=== PATIENT | male | born 1985 | race African-American/Black ===

== ENCOUNTER 2016-09-20 06:03 | Emergency (ER) | payer MEDICAID ==
[~2016-09-20] VITALS: Ht 175.3 cm; Wt 66.0 kg
[2016-09-20 06:13] VITALS: BP 121/87
== END 2016-09-20 07:30 | disposition left against medical advice (07) ==
LOC: ER 06:07
DX: R10.9 Unspecified abdominal pain (principal); Z53.21 Procedure and treatment not carried out due to patient leaving prior to being seen by health care provider

== ENCOUNTER 2018-06-28 08:24 | Emergency (ER) | payer MEDICAID ==
[~2018-06-28] VITALS: Ht 175.3 cm; Wt 68.0 kg
[2018-06-28] MEDS ORDERED: HYDROCODONE/ACETAMINOPHEN 5/325MG TABLET PO ONE (10:15)
[2018-06-28 11:38] VITALS: BP 130/84
== END 2018-06-28 11:40 | disposition home or self-care (01) ==
LOC: ER 08:37
DX: M25.512 Pain in left shoulder (principal); F17.200 Nicotine dependence, unspecified, uncomplicated
CPT/HCPCS: 73030; 99283

== ENCOUNTER 2021-02-01 10:21 | Emergency (ER) | payer MEDICAID ==
[~2021-02-01] VITALS: Ht 177.8 cm; Wt 73.0 kg
[2021-02-01 11:03] VITALS: BP 124/78
[2021-02-01] MEDS ORDERED: IBUPROFEN 600MG TABLET PO ONE (11:30)
[2021-02-01] MEDS ORDERED: IBUP-2029 MT (11:51)
== END 2021-02-01 12:09 | disposition home or self-care (01) ==
LOC: ER 10:21
DX: S63.502A Unspecified sprain of left wrist, initial encounter (principal); W50.2XXA Accidental twist by another person, initial encounter; Y93.89 Activity, other specified; Y92.89 Other specified places as the place of occurrence of the external cause; Y99.8 Other external cause status
CPT/HCPCS: 73110; 99283

== ENCOUNTER 2021-04-30 17:11 | Emergency (ER) | payer MEDICAID, OTHER ==
[~2021-04-30] VITALS: Ht 175.3 cm; Wt 70.0 kg
[~2021-04-30 17:11] MED LIST: IBUP-2029 MT
[2021-04-30 17:20] VITALS: BP 137/90
[2021-05-01] MEDS ORDERED: NAP5EC MT (11:32)
[2021-05-01] MEDS ORDERED: METH-653 MT (12:00)
== END 2021-04-30 18:58 | disposition left against medical advice (07) ==
LOC: ER 17:11
DX: Z53.21 Procedure and treatment not carried out due to patient leaving prior to being seen by health care provider (principal)

== ENCOUNTER 2021-05-01 09:27 | Emergency (ER) | payer OTHER ==
[~2021-05-01] VITALS: Ht 175.3 cm; Wt 73.0 kg
[2021-05-01 09:31] VITALS: BP 117/79
[2021-05-01] MEDS ORDERED: NAP5EC MT (11:32)
[2021-05-01] MEDS ORDERED: IBUPROFEN 600MG TABLET PO ONE (11:45)
[2021-05-01] MEDS ORDERED: METH-653 MT (12:00)
== END 2021-05-01 12:07 | disposition home or self-care (01) ==
LOC: ER 09:35
DX: M54.2 Cervicalgia (principal); M62.838 Other muscle spasm; V49.59XA Passenger injured in collision with other motor vehicles in traffic accident, initial encounter; Y93.89 Activity, other specified; Y92.89 Other specified places as the place of occurrence of the external cause; Y99.8 Other external cause status; Z79.899 Other long term (current) drug therapy
CPT/HCPCS: 99283

== ENCOUNTER 2024-06-18 13:12 | Emergency (ER) | payer MEDICAID, OTHER ==
[~2024-06-18] VITALS: Ht 175.3 cm; Wt 84.0 kg
[~2024-06-18 13:12] MED LIST changes: +IBUP-2028 MT; +METH-653 MT; +NAPR-1495 MT; +TOPUD PO
[2024-06-18 13:16] VITALS: BP 153/81; PULSE 93; RESP 16; TEMP 98.6; O2SAT 95
[2024-06-18] MEDS: CEFTRIAXONE SODIUM 500MG VIAL IM ONE (13:55)
[2024-06-18] MEDS: AZITHROMYCIN 500 MG TABLET PO ONE (13:56)
[2024-06-18 14:22] LABS: CLARITY URINE CLOUDY (CLEAR); COLOR URINE YELLOW (YELLOW); GLUCOSE URINE NEGATIVE (NEGATIVE); KETONES URINE NEGATIVE (NEGATIVE); NITRITE URINE NEGATIVE (NEGATIVE); OCCULT BLOOD URINE NEGATIVE (NEGATIVE); PH URINE 7.5 (4.5-8.0); PROTEIN URINE TRACE (NEGATIVE); SPECIFIC GRAVITY URINE 1.027 (1.005-1.030)
[2024-06-18 14:23] LABS: LEUKOCYTE ESTERASE URINE 2+ (NEGATIVE)
[2024-06-18] MEDS ORDERED: TOPUD PO (14:28)
[2024-06-18] MEDS ORDERED: DOXY100C5 MT (14:28)
[2024-06-18] MEDS ORDERED: IBUP-2029 MT (14:28)
[2024-06-18 14:41] LABS: BACTERIA URINE 1+; SQUAMOUS EPITHELIAL CELL URINE 1+ /lpf (RARE/1+)
[2024-06-21 04:11] LABS: CHLAMYDIA TRACHOMATIS NAA Negative (Negative); NEISSERIA GONORRHOEAE NAA Positive (Negative)
== END 2024-06-18 15:02 | disposition home or self-care (01) ==
LOC: ER 13:12
DX: A64 Unspecified sexually transmitted disease (principal); Z11.3 Encounter for screening for infections with a predominantly sexual mode of transmission; Z79.899 Other long term (current) drug therapy
CPT/HCPCS: 99283; 87491; 87591; 81003; 96372; J0696

== ENCOUNTER 2024-08-21 12:58 | Emergency (ER) | payer OTHER ==
[~2024-08-21] VITALS: Ht 175.3 cm; Wt 83.9 kg
[~2024-08-21 12:58] MED LIST changes: +DOXY100C5 MT
[2024-08-21 13:01] VITALS: O2SAT 99
[2024-08-21 13:22] VITALS: BP 123/86; PULSE 93; RESP 16; TEMP 36.7; O2SAT 98
[2024-08-21] MEDS ORDERED: IBUP-2028 MT (13:48)
[2024-08-21] MEDS ORDERED: IBUPROFEN 400MG TABLET PO ONE (14:00)
== END 2024-08-21 14:00 | disposition home or self-care (01) ==
LOC: ER 12:58
DX: M25.619 Stiffness of unspecified shoulder, not elsewhere classified (principal); Z79.899 Other long term (current) drug therapy; V49.9XXA Car occupant (driver) (passenger) injured in unspecified traffic accident, initial encounter; Y93.89 Activity, other specified; Y92.89 Other specified places as the place of occurrence of the external cause; Y99.8 Other external cause status
CPT/HCPCS: 99282

== ENCOUNTER 2025-04-26 18:00 | Emergency (ER) | payer OTHER ==
[~2025-04-26] VITALS: Ht 175.3 cm; Wt 86.0 kg
[~2025-04-26 18:00] MED LIST changes: +IBUP-1455 MT; -IBUP-2029 MT
[2025-04-26 18:07] VITALS: O2SAT 97
[2025-04-26] MEDS ORDERED: ALBU18HF2 IH (20:29)
[2025-04-26 20:33] VITALS: BP 118/80; PULSE 85; RESP 18; TEMP 36.9; O2SAT 99
== END 2025-04-26 20:36 | disposition home or self-care (01) ==
LOC: ER 18:00
DX: R05.9 Cough, unspecified (principal); R07.9 Chest pain, unspecified; Z79.1 Long term (current) use of non-steroidal anti-inflammatories (NSAID)
CPT/HCPCS: 71045; 99283